=== PATIENT | female | born 1960 | race Caucasian/White ===

== ENCOUNTER 2024-02-19 20:38 | Emergency (ER) | payer OTHER ==
[~2024-02-19] VITALS: Ht 162.6 cm; Wt 85.0 kg
[~2024-02-19 20:38] MED LIST: UNK HTN MED
[2024-02-19 21:01] VITALS: TEMP 98.3
[2024-02-19 22:50] VITALS: BP 131/74; PULSE 65; RESP 16
[2024-02-19] MEDS: ACETAMINOPHEN 325 MG TABLET PO ONE (22:56)
== END 2024-02-19 23:04 | disposition home or self-care (01) ==
LOC: EMS 20:38
DX: S00.83XA Contusion of other part of head, initial encounter (principal); I10 Essential (primary) hypertension; X58.XXXA Exposure to other specified factors, initial encounter; Y93.89 Activity, other specified; Y92.89 Other specified places as the place of occurrence of the external cause; Y99.8 Other external cause status
CPT/HCPCS: 99282; Z7502; Z7610